=== PATIENT | female | born 1950 | race Caucasian/White ===

== ENCOUNTER 2022-07-22 18:04 | Outpatient (CLI) | payer MEDICARE, SELFPAY ==
--- NOTE | ~2022-07-22 | US_ITS ---
US thyroid INDICATION: Nontoxic thyroid nodule TECHNIQUE: Real-time sonographic images of the thyroid gland were obtained. COMPARISON: No prior studies for comparison. FINDINGS: The right thyroid lobe measures 4.4 x 1.3 x 2.1 cm. The left thyroid lobe measures 4.2 x 1 .3 x 1.6 cm. Thyroid gland is diffusely heterogeneous with bilateral thyroid nodules. Largest dominan t nodule in the right lobe measures 11 x 7 x 6 mm and is a mixed solid and cystic, hypoechoic, wider than tall, smoothly marginated with punctate echogenic foci, TR 4. Dominant mass in the left thyroid gland measures 1.7 x 1.1 x 0.7 cm is mixed cystic and solid, hypoechoic, smoothly marginated without echogenic foci, TR 3. IMPRESSION: 1. Multiple bilateral thyroid nodules compatible with multinodular goiter. Bilateral thyroid nodules do not meet sonographic criteria for biopsy. Recommend follow-up ultrasound in 12 months. Reviewed, dictated and finalized at location B. OMER EXPERIENCE SPECIALIST IMPRESSION: 1. Multiple bilateral thyroid nodules compatible with multinodular goiter. Luis ateral thyroid nodules do not meet sonographic criteria for biopsy. Recommend f ollow-up ultrasound in 12 months.
== END 2022-07-22 18:05 | disposition home or self-care (01) ==
LOC: ANHIMG 18:05
PROVIDERS: PCP Family Medicine; Visit Provider Physician Assistant Medical
DX: E04.2 Nontoxic multinodular goiter (principal)
CPT/HCPCS: 76536

== ENCOUNTER 2022-08-09 11:43 | Outpatient (CLI) | payer MEDICARE, SELFPAY ==
--- NOTE | ~2022-08-09 | DEXA_ITS ---
Bone Density Report Name: LAURA GATES Age: 72 Sex: Female Ethnicity: White Date of : 1950 Indication: postmenopausal; screening for osteoporosis; height loss; prior fracture; Referring Provider: TOÑA WOOD Study: Bone densitometry was performed. Exam Date: August 09, 2022 Accession number: [id number] Bone Density: Region BMD T-score Z-score Classification AP Spine(L1-L4) 0.803 -2.2 0.0 Osteopenia Femoral Neck (Left) 0.617 -2.1 -0.2 Osteopenia Total Hip (Left) 0.809 -1.1 0.5 Osteopenia Femoral Neck (Right) 0.566 -2.6 -0.6 Osteoporosis Total Hip (Right) 0.748 -1.6 0.0 Osteopenia Total Hip Mean 0.779 -1.4 0.3 Osteopenia World Health Organization criteria for BMD impression classify patients as: Normal (T-score at or above -1.0), Osteopenia (T-score between -1.0 and -2.5), or Osteoporosis (T-score at or below -2.5). 10-year Fracture Risk: FRAX not reported because: Some T-score for Spine Total or Hip Total or Femoral Neck at or below -2.5 Clinical Information Provided by Patient: Has had a low trauma fracture Has used the following medications: Vitamin D, Calcium Patient maximum height was 66 Menopause Age: 50 Drinks caffeinated beverages Onset of menses at age 13 Number of children 2 Impression: The patient has established osteoporosis, based on the Right Femoral Neck T-score and the existence of a prior fracture. The patient has risk factors, including: previous fracture. Discussion: HIGH RISK OF FRACTURE. BONE DENSITY IS UNDESIRABLY LOW AT ONE OR MORE SKELETAL SITES, CONSISTENT WITH POSTMENOPAUSAL OSTEOPOROSIS. This patient's lowest T-score, in a patient who has previously fractured, meets the World Health Organization's (WHO) criteria for severe osteoporosis. In untreated patients, the risk of osteoporotic fracture increases approximately two-fold for each 1.0 SD decrease in T-score. Low bone density is not the only risk factor for fracture; also consider factors such as patient's age, frailty or poor health, risk of falling, risk of injury, previous osteoporotic fracture, family history of osteoporosis, cigarette smoking, low body weight, etc. Not everyone with low bone mineral density has osteoporosis; osteomalacia and other metabolic bone disorders should also be considered. Patients who have osteoporosis should be evaluated for specific diseases and conditions (secondary causes) that may cause or contribute to bone loss. The [place] [employer]ocrinologists (AACE) and National Osteoporosis Foundation (NOF) recommend pharmacologic intervention for all postmenopausal women whose T-score is in this range. The patient should follow a healthful lifestyle (good nutrition with adequate calcium and vitamin D, and appropriate weight-bearing exercise). Fol
== END 2022-08-09 11:44 | disposition home or self-care (01) ==
PROVIDERS: PCP Family Medicine; Visit Provider Physician Assistant Medical
DX: Z78.0 Asymptomatic menopausal state (principal); M85.89 Other specified disorders of bone density and structure, multiple sites; M81.0 Age-related osteoporosis without current pathological fracture
CPT/HCPCS: 77080

== ENCOUNTER 2022-09-25 11:22 | Day surgery (SDC) | payer MEDICARE, SELFPAY ==
[2022-09-13 13:08] VITALS: BMI 23.8
--- NOTE | 2022-09-25 09:37 | WPDANESEPPF ---
Anes - Initial Pre Proc Eval Procedure: Operation Date: 09/25/22 13:30 Proposed Procedures p Screening Colonoscopy - Vishnu Mcmahan MD Date/Time: 09/25/22 09:37 Surgeon: Vishnu Mcmahan MD Pre Op Diagnosis: History of colon polyps Patient Data Age: 72 Gender: F Height: 1.65 m Weight: 65 kg Allergies Allergy/AdvReac Type Severity Reaction Status Date / Time No Known Allergies Allergy Verified 09/25/22 12:18 Home Medications Medication Instructions Recorded Confirmed Type biotin 5,000 mcg disintegrating 10,000 mcg PO DAILY 07/18/22 09/25/22 History tablet cetirizine 10 mg tablet (Allergy 10 mg PO DAILY 07/18/22 09/25/22 History Relief (cetirizine)) cholecalciferol (vitamin D3) 50 50 mcg PO DAILY 07/18/22 09/25/22 History mcg (2,000 unit) capsule magnesium oxide 500 mg capsule 500 mg PO DAILY 07/18/22 09/25/22 History nqklpngx-wpv-rfppo acid 0.4 1 tablet PO DAILY 07/18/22 09/25/22 History mg-lycopene 300 mcg-lutein 250 mcg tablet (Centrum Silver) vit 1 cap PO DAILY 07/18/22 09/25/22 History C,E,zinc,Ss-kzexq-5-lutein-zeaxanthin 250 mg-2.5 mg-0.5 mg capsule vitamin B12 500 mcg-folic acid 400 1 tablet PO DAILY 07/18/22 09/25/22 History mcg tablet atorvastatin 10 mg tablet 10 mg PO DAILY #30 tabs 07/23/22 09/25/22 Rx Patient hx anesthesia problems: none Family hx anesthesia problems: none Results Review: All pre-operative results and documents have been reviewed as part of the pre-operative evaluation. [facility] Past Medical History Medical History (Updated 09/25/22 @ 09:45 by Joe Shah MD) Age related osteoporosis Hyperlipidemia Multinodular goiter Seasonal allergies Surgical History Surgical History (Updated 07/18/22 @ 12:11 by Yenny Kay CMA) H/O wrist surgery Family History Family History (Updated 07/18/22 @ 11:50 by Yenny Kay CMA) Other Cerebrovascular accident Colon polyp Hypertension Leukemia Malignant neoplasm of prostate Social History Social History (Updated 07/18/22 @ 12:02 by Yenny Kay [facility]) Smoking status: Never smoker Second hand tobacco smoke exposure: No Alcohol intake: current Drinks per week: 2 Alcohol use details: beer/wine Substance use: never Substance use type: does not use Lack of Transportation: No Lack of Food: Never True Current Housing: I Have Housing Concerned About Future Housing: No Difficulty Paying Gas/Electric Bills: No Difficulty Paying for Meds: No Currently Unemployed: No Difficulty w/ Childcare or Family Care: No Living arrangements: with family Additional living arrangements comments: Occupation/Education: retired Gender identity (if verbalized by the patient): Female Sexual Orientation (if Verbalized by the Patient): Straight or Heterosexual Spiritual care concerns: No Agree to blood products: Yes Anes - Eval Final PreProcedure Day of Procedure 09/25/22 09:37 Patient weight: normal Heart: regular rate and rhythm Lungs: clear to auscultation and normal air movement Airway: Mallampati scale class II Neurological: alert and oriented Last oral intake: >/= 8 hours ASA classification: II Emergent: no Anesthetic plan: proceed Anesthesia type and monitoring: general GIVS Results Review: All pre-operative results and documents have been reviewed as part of the pre-operative evaluation. Informed Consent: The patient's anesthetic plan and its attendant risks and benefits were discussed with the patient/family/POA. Questions were solicited and answers provided to the satisfaction of the patient/family/POA.
[2022-09-25 12:10] VITALS: BP 171/84; PULSE 94; RESP 20; TEMP 37.1; O2SAT 100
[2022-09-25] MEDS: LACTATED RINGERS 1,000 ML 150 ML IV CONT (12:28)
--- NOTE | 2022-09-25 13:11 | PM.HPGS ---
History of Present Illness History of Present Illness Consent: Risks, benefits, and alternatives have been discussed and questions answered. Patient agrees to proceed with procedure. Chief complaint: History of colon polyps Narrative: Christina Hope is a 72 year old female with last colonoscopy 2012, had small polyp removed Review of Systems Constitutional: Constitutional: Denies headache(s) and Denies weakness Eyes: Eyes: Denies blurry vision ENT: Reports Normal hearing present, Denies headache(s) and Denies neck pain Cardiovascular: Cardiovascular: Denies chest pain and Denies dyspnea Respiratory: Respiratory: Denies dyspnea Gastrointestinal: Gastrointestinal: Reports no additional gastrointestinal complaints Genitourinary: Genitourinary: Denies dysuria Musculoskeletal: Musculoskeletal: Denies neck pain Integumentary/Breasts: Skin/Breast: Denies dry skin Neurologic: Reports Normal hearing present, Denies headache(s) and Denies weakness Psychiatric: Psychiatric: Denies anxiety Endocrine: Endocrine: Denies change in body appearance Hematologic/Lymphatic: Hematologic/Lymphatic: Denies easy bleeding Allergic/Immunologic: Allergic/Immunologic: Denies urticaria PMFSH Past Medical History Medical History (Updated 09/25/22 @ 13:11 by Vishnu Mcmahan MD) Age related osteoporosis Colon cancer screening Hyperlipidemia Multinodular goiter Seasonal allergies Surgical History Surgical History (Updated 07/18/22 @ 12:11 by Yenny Kay CMA) H/O wrist surgery Family History Family History (Updated 07/18/22 @ 11:50 by Yenny Kay CMA) Other Cerebrovascular accident Colon polyp Hypertension Leukemia Malignant neoplasm of prostate Social History Social History (Updated 07/18/22 @ 12:02 by Yenny Kya CMA) Smoking status: Never smoker Second hand tobacco smoke exposure: No Alcohol intake: current Drinks per week: 2 Alcohol use details: beer/wine Substance use: never Substance use type: does not use Lack of Transportation: No Lack of Food: Never True Current Housing: I Have Housing Concerned About Future Housing: No Difficulty Paying Gas/Electric Bills: No Difficulty Paying for Meds: No Currently Unemployed: No Difficulty w/ Childcare or Family Care: No Living arrangements: with family Additional living arrangements comments: Occupation/Education: retired Gender identity (if verbalized by the patient): Female Sexual Orientation (if Verbalized by the Patient): Straight or Heterosexual Spiritual care concerns: No Agree to blood products: Yes Meds Home Medications and Allergies Home Medications Medication Instructions Recorded Confirmed Type biotin 5,000 mcg disintegrating 10,000 mcg PO DAILY 07/18/22 09/25/22 History tablet cetirizine 10 mg tablet (Allergy 10 mg PO DAILY 07/18/22 09/25/22 History Relief (cetirizine)) cholecalciferol (vitamin D3) 50 50 mcg PO DAILY 07/18/22 09/25/22 History mcg (2,000 unit) capsule magnesium oxide 500 mg capsule 500 mg PO DAILY 07/18/22 09/25/22 History jkmoszpg-wqz-bbhrw acid 0.4 1 tablet PO DAILY 07/18/22 09/25/22 History mg-lycopene 300 mcg-lutein 250 mcg tablet (Centrum Silver) vit 1 cap PO DAILY 07/18/22 09/25/22 History C,E,zinc,Lp-lbvia-7-lutein-zeaxanthin 250 mg-2.5 mg-0.5 mg capsule vitamin B12 500 mcg-folic acid 400 1 tablet PO DAILY 07/18/22 09/25/22 History mcg tablet atorvastatin 10 mg tablet 10 mg PO DAILY #30 tabs 07/23/22 09/25/22 Rx Allergies Allergy/AdvReac Type Severity Reaction Status Date / Time No Known Allergies Allergy Verified 09/25/22 12:18 Vital Signs Vital Signs - 24 hr 09/25/22 12:10 Temperature 98.7 F Pulse Rate 94 Respiratory Rate 20 Blood Pressure 171/84 H Pulse Oximetry 100 Oxygen Delivery Room Air Exam Const: General: comfortable and no acute distress HENMT: Face/Nose/Sin
[2022-09-25 13:38] VITALS: BP 116/84; PULSE 77; RESP 20; O2SAT 98
[2022-09-25 13:48] VITALS: BP 132/73; PULSE 63; RESP 20; O2SAT 97
--- NOTE | 2022-09-25 13:52 | WPDANESPN ---
Anes - Prog Note Post-Op Date/Time: 09/25/22 13:52 Cardiovascular status: normal Respiratory status: normal Airway patency: baseline Mental status: baseline Post-Op hydration status: normal Vital Signs: Last Vital Signs Temp 37.1 C 09/25/22 12:10 Pulse 94 09/25/22 12:10 Resp 20 09/25/22 12:10 BP 171/84 H 09/25/22 12:10 Pulse Ox 100 09/25/22 12:10 O2 Del Method Room Air 09/25/22 12:10 Pain Score (VAS): 0 I/O: Intake & Output 09/24/22 09/25/22 09/25/22 23:59 07:59 15:59 Intake Total 300 Balance 300 Post-procedural complaints: none Patient Feedback: Patient satisfied with anesthetic care.
[2022-09-25 13:58] VITALS: BP 147/62; PULSE 64; RESP 20; O2SAT 100
== END 2022-09-25 14:08 | disposition home or self-care (01) ==
PROVIDERS: PCP Family Medicine; Visit Provider Internal Medicine Gastroenterology
PROC: 0DJD8ZZ Inspection of Lower Intestinal Tract, Via Natural or Artificial Opening Endoscopic (ICD-10-PCS; CPT 45378; principal; 2022-09-25 13:30)
DX: Z12.11 Encounter for screening for malignant neoplasm of colon (principal)
CPT/HCPCS: 45378

== ENCOUNTER → 2023-08-14 10:15 | Outpatient (CLI) | payer MEDICARE, SELFPAY ==
--- NOTE | ~2023-08-14 | US_ITS ---
EXAMINATION: US thyroid DATE: 08/14/2023 10:33 INDICATION: Multinodular goiter. TECHNIQUE: Multiple ultrasound images of the thyroid were obtained. COMPARISON: Ultrasound 07/22/2022 FINDINGS: The right thyroid lobe measures 4.3 x 1.7 x 1.9 cm. The left thyroid lobe measures 4.0 x 1.3 x 1.6 c m. In the left thyroid lobe, there is a 1.4 cm predominantly solid, hypoechoic, wider than tall nodu le with ill-defined margin without echogenic foci (TI-RADS TR4). In the left thyroid lobe, there is a 5 mm solid, hypoechoic, wider than tall nodule with ill-defined margin without echogenic foci (TR4). In the right thyroid lobe, there is an 8 mm solid, hypoechoic, wider than tall nodule with smooth ma rgin without echogenic foci (TR4). In the right thyroid lobe, there is a 10 mm solid, hypoechoic, wid er than tall nodule with smooth margin without punctate echogenic foci (TR4). IMPRESSION: 1. Stable multinodular goiter. Thyroid ultrasound is recommended in one year. Reviewed, dictated and finalized at location A. SWAMPER
== END ==
PROVIDERS: PCP Internal Medicine; Visit Provider Internal Medicine
DX: E04.2 Nontoxic multinodular goiter (principal)
CPT/HCPCS: 76536

== ENCOUNTER 2023-09-26 12:36 | Outpatient (CLI) | payer MEDICARE, SELFPAY ==
--- NOTE | ~2023-09-26 | US_ITS ---
EXAMINATION: US FNA w image guidance, US FNA additional DATE: 09/26/2023 13:52 INDICATION: Bilateral thyroid nodules TECHNIQUE: A time-out was performed to verify the patient's name, date of , and procedure to be performed . The procedure and its benefits and risks were discussed with the patient. Risks specifically discus sed included bleeding and infection. The patient understood the risks and agreed to proceed. The neck was prepped and draped in the usual sterile manner. 3 mL 1% lidocaine was used for local anesthesia at the sites of biopsy overlying both the left and right thyroid lobes. 6 passes were made with a 25 G needle into each of the left and right thyroid nodules. Appropriate needle location was documented with continuous sonographic guidance. Sterile bandages were applied. There were no immediate compli cations. FINDINGS: Grayscale ultrasound images demonstrate biopsy needles advanced into 1.7 cm predominantly solid nodul es at the inferior left thyroid. Subsequent images demonstrate biopsy needles advanced into the small er 1.5 cm predominant solid hypoechoic nodule at the superior right thyroid lobe. Both nodules demons trate internal echogenic foci with posterior comet tailing consistent with inspissated colloid. IMPRESSION: 1. Successful ultrasound-guided fine needle aspiration of a 1.5 cm nodule at the superior right thyr oid. 2. Successful ultrasound guided fine needle aspiration of a 1.7 cm nodule in the inferior left thyroi d. Reviewed, dictated and finalized at location A. RNATIONAL TRAVEL CONSULTANT IMPRESSION: 1. Successful ultrasound-guided fine needle aspiration of a 1.5 cm nodule at t he superior right thyroid. 2. Successful ultrasound guided fine needle aspiration of a 1.7 cm nodule in th e inferior left thyroid.
== END 2023-09-26 12:37 | disposition home or self-care (01) ==
PROVIDERS: PCP Internal Medicine; Visit Provider Internal Medicine
DX: E04.2 Nontoxic multinodular goiter (principal); K52.89 Other specified noninfective gastroenteritis and colitis
CPT/HCPCS: 10005; 10006; 88172; 88173; 88305

== ENCOUNTER 2024-08-24 11:52 | Outpatient (CLI) | payer MEDICARE, SELFPAY ==
--- NOTE | ~2024-08-24 | US_ITS ---
EXAMINATION: US thyroid DATE: 08/24/2024 12:18 INDICATION: Thyroid nodules. TECHNIQUE: Multiple ultrasound images of the thyroid were obtained. COMPARISON: Thyroid ultrasound 08/14/2023, 07/22/2022 FINDINGS: The right thyroid lobe measures 4.5 x 1.8 x 1.9 cm. The left thyroid lobe measures 4.3 x 1.6 x 1.0 c m. In the thyroid isthmus, there is a 9 mm solid, hypoechoic, wider than tall nodule with smooth mar gin without echogenic foci (TI-RADS TR4). In the right thyroid lobe, there is a 10 mm mixed cystic an d solid, hypoechoic, wider than tall nodule with smooth margin and punctate echogenic foci (TR4), sta ble from 09/26/23 when biopsy was benign. In the right thyroid lobe, there is a 6 mm mixed cystic and solid, hypoechoic, wider than tall nodule with smooth margin and punctate echogenic foci (TR4). In th e right thyroid lobe, there is a 10 mm solid, hypoechoic, wider than tall nodule with lobular margin and punctate echogenic foci (TR5). In the left thyroid lobe, there is a 4 mm nodule. In the left thyr oid lobe, there is a 10 mm solid, hypoechoic, wider than tall nodule with smooth margin and macrocalc ification (TR4), decreased in size from 09/26/23 when biopsy was benign. IMPRESSION: 1. Multinodular goiter status post two recent benign biopsies. Reviewed, dictated and finalized at location A. . CREATIVE DIRECTOR
== END 2024-08-24 11:53 | disposition home or self-care (01) ==
LOC: MICIMG 11:52
PROVIDERS: PCP Family Medicine; Visit Provider Internal Medicine
DX: M81.0 Age-related osteoporosis without current pathological fracture (principal); E04.2 Nontoxic multinodular goiter
CPT/HCPCS: 76536

== ENCOUNTER 2024-09-21 09:48 | Outpatient (CLI) | payer MEDICARE, SELFPAY ==
--- NOTE | ~2024-09-21 | DEXA_ITS ---
Bone Density Report Name: LAURA GATES Age: 74 Sex: Female Ethnicity: White Date of : 1950 Indication: osteopenia; monitoring treatment; height loss; Referring Provider: DIPTI VILLALPANDO Study: Bone densitometry was performed. Exam Date: September 21, 2024 Accession number: [id number] Bone Density: Region BMD T-score Z-score Classification AP Spine(L1-L4) 0.826 -2.0 0.3 Osteopenia Femoral Neck (Left) 0.641 -1.9 0.2 Osteopenia Total Hip (Left) 0.863 -0.7 1.1 Normal Femoral Neck (Right) 0.579 -2.4 -0.4 Osteopenia Total Hip (Right) 0.792 -1.2 0.5 Osteopenia Total Hip Mean 0.827 -1.0 0.8 Normal World Health Organization criteria for BMD impression classify patients as: Normal (T-score at or above -1.0), Osteopenia (T-score between -1.0 and -2.5), or Osteoporosis (T-score at or below -2.5). 10-year Fracture Risk: FRAX not reported because: Treated for osteoporosis Previous Exams: Region Exam Age BMD T-score BMD Change BMD Change Date g/cm2 vs Baseline vs Previous AP Spine (L1-L4) 09/21/2024 74 0.826 -2.0 0.022 (2.8%)# 0.022 (2.8%)# 08/09/2022 72 0.803 -2.2 Total Hip(Left) 09/21/2024 74 0.863 -0.7 0.053 (6.6%)# 0.053 (6.6%)# 08/09/2022 72 0.809 -1.1 Total Hip(Right) 09/21/2024 74 0.792 -1.2 0.044 (5.9%)# 0.044 (5.9%)# 08/09/2022 72 0.748 -1.6 *Denotes significance at 95% confidence level, LSC for AP Spine = 0.022 g/cm2, LSC for Total Hip = 0.027 g/cm2 # Denotes dissimilar scan types or analysis methods Clinical Information Provided by Patient: Is being treated for osteoporosis Has used the following medications: Vitamin D, Calcium Patient maximum height was 66 Menopause Age: 50 Drinks caffeinated beverages Onset of menses at age 13 Number of children 2 Impression: The patient has low bone mass, based on the Right Femoral Neck T-score. No significant bone loss was observed. Discussion: PATIENT UNDER TREATMENT WITH NO SIGNIFICANT BMD LOSS SINCE LAST EXAM. In an untreated patient, BMD typically declines with age. A lack of decline or gain is usually a sign that treatment is efficacious and fracture risk is reduced. It is important to ask patients whether they are taking their medications and to encourage continued and appropriate compliance with their osteoporosis therapies to reduce fracture risk. It is also important to review their risk factors and encourage appropriate calcium and vitamin D intakes, exercise, fall prevention and other lifestyle measures. Follow-Up: Consider a repeat BMD and Vertebral Fracture Assessment (VFA) exam in 2 years or sooner if medically necessary, to reassess this patient's status. Reported by: JOSÉ LUIS on 09/21/2024 10:27:00 AM. Reviewed, dictated and finalized at location AEricka [facility]
--- OUTSIDE RECORDS SUMMARY | 2024-09-23 17:02 | XMS_ITS | Clinical Summary ---
Author Organization [facility] Address [address] [place] [address]. [place], [place] [id number] [place] [address] Care Team Providers Care Scada Technician Name Role Phone Unavailable Primary Care Provider Unavailabl e Social History Tobacco Use Types Packs/Day Years Used Date Smoking Tobacco: Never Assessed Comments Unknown Sex and Gender Information Value Date Recorded Sex Assigned at Not on file Legal Sex Female 4:22 PM CDT Gender Identity Not on file Sexual Orientation Not on file Last Filed Vital Signs Vital Sign Reading Time Taken Comments Blood Pressure 140/80 10/10/2012 11:52 AM CONTROL CHEMIST Pulse 88 10/10/2012 11:52 AM CONTROL CHEMIST Temperature - - Respiratory Rate - - Oxygen Saturation - - Inhaled Oxygen Concentration - - Weight 66.7 kg (147 lb) 10/10/2012 11:52 AM CONTROL CHEMIST Height - - Body Mass Index - - Plan of Treatment Health Maintenance Due Date Last Done Comments Colorectal Cancer Screening Colonoscopy (10 Years) 1950 Hepatitis C 1968 DTaP, Tdap and Td Vaccines ( 1 - Tdap) 1969 Mammogram Screening 1990 Zoster Vaccines (1 of 2) 2000 Dexa Scan (General) 2015 Pneumococcal Vaccine: 65+ Ye ars (1 of 1 - PCV) 2015 COVID-19 Vaccine ( - 2023-2 5 season) 2024 Influenza Adult (#1) 2024 RSV Immunization or 60+ Years (1 - 1-dose 75+ series) 2025 Meningococcal Vaccine Aged Out No benjamin donovan eligible based on patient's age to complete this topic RSV Immunizations Under 20 Months Aged Out No longer eligible based on patient's age to complete this topic
--- OUTSIDE RECORDS SUMMARY | 2024-09-23 17:02 | XMS_ITS | Clinical Summary ---
Author Organization [facility] Address [address] [place] [address] Care Team Providers Care Exec. Creative Director Name Role Phone Ashley Wise MD Primary Care Provider [phone] Allergies No known active allergies Medications vits A,C,E/lutein/zeax/ zn/abdulaziz (EYE HEALTH FORMULA ORAL) Active multivitamin with minerals (HAIR,SKIN AND NAILS ORAL) Active multivitamin tabletIndications: Vitamin Deficiency Prevention Active cholecalciferol (VITAMIN D-3) 10,000 unit tablet A ctive magnesium oxide (MAG-OX) 500 mg (301.6 mg elemental) tablet Ac tive Active Problems Problem Noted Date Diagnosed Date Knee pain 11/11/2016 Skin neoplasm 06/05/2015 Actinic keratosis 06/05/2015 Keratosis, senilis 06/05/2015 Surgical History Surgery Date Site/Laterality Comments WRIST SURGERY Left Family History Medical History Relation Name Comments Hypertension Brother Family history of hypertension - (Added by TW Conv) Heart disease Father Stroke Mother Family history of cerebrovascular accident (CVA) - (Added by TW Conv) Ovarian cancer Other 1 Carcinoma Of The Ovary - (Added by TW Conv) Stroke Other 2 Stroke Syndrome - (Added by TW Conv) Relation Name Status Comments Brother Father Mother Other 1 Other 2 Social History Tobacco Use Types Packs/Day Years Used Date Smoking Tobacco: Never Smokeless Tobacco: Never Alcohol Use Standard Drinks/Week Comments Yes 0 (1 standard drink = 0.6 oz pur e alcohol) socially Comments No Sex and Gender Information Value Date Recorded Sex Assigned at Not on file 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 Gender Identity Not on file Sexual Orientation Not on file Obstetrics History Para Term AB IAB SAB Ectopic Multiple Livin g Live Births 2 2 2 2 2 Date Outcome GA Total Labor Labor/2nd/3rd Weight Sex Type Anes PTL Paige A1 A5 Name Clin 1972 Term M Vag-S pont Living Complications:None 1976 Term F Vag-S pont Living Complications:None Last Filed Vital Signs Vital Sign Reading Time Taken Comments Blood Pressure 156/78 05/14/2018 10:18 AM CDT Pulse 97 07/06/2013 11:00 AM COMPENSATION SUPERVISOR Temperature - - Respiratory Rate - - Oxygen Saturation - - Inhaled Oxygen Concentration - - Weight 68.7 kg (151 lb 6.4 oz) 05/14/2018 10:18 AM CDT Height 163.8 cm (5' 4.5 ) 05/14/2018 10:18 AM CD T Body Mass Index 25.59 05/14/2018 10:18 AM CDT Plan of Treatment Health Maintenance Due Date Last Done Comments Depression Screening 1950 Fall Risk Assessment 1950 Hepatitis C Screening 1950 Osteoporosis Screening-Bone Density Scan 1950 Hepatitis B Screening 1968 Zoster Vaccine (1 of 2) 2000 Pneumococcal vaccine 65+ (1 of 1 - PCV) 2015 Well Visit 65+ 05/14/2019 05/14/2018 Colon Cancer Screening-Colonoscopy 07/12/2023 07/12/2013 Influenza Vaccine (#1) 2024 06/19/2017 Breast Cancer Screening-Mammogram 05/17/2025 05/17/2024, 05/14/2023, 05/13/2022, Additional history exists DTaP/Tdap/Td Vaccine (2 - Td or Tdap) 05/07/2026 05/07/2016 Colon Cancer Screening-CT Colonography Discontinued 07/12/2013 Colon Cancer Screening-DNA Stool Discontinued 07/12/20 13 Colon Cancer Screening-FIT Discontinued 07/12/2013 Colon Cancer Screening-Sigmoidoscopy Discontinued 07/12/2013 Procedures Procedure Name Priority Date/Time Associated Diagnosis Comments SCREENING MAMMOGRAM BILATERAL W TYLER Schedule Routine, Read Routine (OP Routine) 05/17/2024 12:53 PM CDT Screening mammogram, encounter for COLONOSCOPY REPORT 07/12/2013 from Last 3 Months or Most Recently Relevant to Health Maintenance Results * Screening Mammogram Bilateral W Tyler (05/17/2024 12:53 PM CDT) Anatomical Region Laterality Modality Breast Bilateral Mammography Narrative 05/18/2024 4:28 PM CDT Mammogram Technique: Bilateral Digital Breast Tomosynthesis, Bilateral C-view 2D Screening mammogram. ??Views obtained: ??bilateral craniocaudal and bilateral mediolateral oblique. ??Computer Aided Detection was performed. Mammogram Findings: The present examination has been compared to prior imaging studies performed at [facility] on 05/13/2022 and 05/14/2023, and at [facility] on 03/30/2021. There are scattered areas of fibroglandular density. There is no suspicious abnormality in either breast. Impression: There is no mammographic evidence of malignancy. Annual screening mammography is recommended. OVERALL FINAL ASSESSMENT: BI-RADS CATEGORY 1: ??Negative. Procedure Note Dedrick Luke MD - 05/18/2024 Mammogram Technique: Bilateral Digital Breast Tomosynthesis, Bilateral C-view 2D Screening mammogram. Views obtained: bilateral craniocaudal and bilateral mediolateral oblique. Computer Aided Detection was performed. Mammogram Findings: The present examination has been compared to prior imaging studies performed at [facility] on 05/13/2022 and 05/14/2023, and at [facility] on 03/30/2021. There are scattered areas of fibroglandular density. There is no suspicious abnormality in either breast. Impression: There is no mammographic evidence of malignancy. Annual screening mammography is recommended. OVERALL FINAL ASSESSMENT: BI-RADS CATEGORY 1: Negative. Self Screening Mammogram IMG MAMMO PROCEDURES Fi nal Result * COLONOSCOPY REPORT (07/12/2013) Anatomical Region Laterality Modality Other Narrative 07/12/2013 Ordered by an unspecified provider. us Historical Provider MD RYAN PROCEDURE ORDERABLES F inal Result from Last 3 Months or Most Recently Relevant to Health Maintenance Insurance MEDICARE SOLUTIONS MEDICARE [facility] REF [facility] Address: [facility] [address] [place] [address] Care Teams Exec. Creative Director Relationship Specialty Start Date End Date Ashley Wise MD PCP - General Family Medicine 03/24/23
--- OUTSIDE RECORDS SUMMARY | 2024-09-23 17:02 | XMS_ITS | Referral Summary ---
Author Organization [facility] al Address [address] [place] [address] Care Team Providers Care Network Technology Instructor Name Role Phone Ashley Wise MD Primary Care Provider Allergies No known active allergies Medications vits [...] 06/05/2015 Actinic keratosis 06/05/2015 Keratosis, senilis 06/05/2015 Social History Tobacco Use Types Packs/Day Years Used Date Smoking Tobacco: Never Smokeless Tobacco: Never Alcohol Use Standard Drinks/Week Comments Yes 0 (1 standard drink = 0.6 oz pur e alcohol) socially Comments No Sex and Gender Information Value Date Recorded Sex Assigned at Not on file 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 Gender Identity Not on file Sexual Orientation Not on file Last Filed Vital Signs Vital Sign Reading Time Taken Comments Blood Pressure 156/78 05/14/2018 10:18 AM CDT Pulse 97 07/06/2013 11:00 AM FLOOR COVERING PRINTER Temperature - - Respiratory Rate - - Oxygen Saturation - - Inhaled Oxygen Concentration - - Weight 68.7 kg (151 lb 6.4 oz) 05/14/2018 10:18 AM CDT Height 163.8 cm (5' 4.5 ) 05/14/2018 10:18 AM CD T Body Mass Index 25.59 05/14/2018 10:18 AM CDT Plan of Treatment Not on file Procedures Procedure Name Priority Date/Time Associated Diagnosis [...] compared to prior imaging studies performed at [facility] on 05/13/2022 and 05/14/2023, and at [facility] on 03/30/2021. There are scattered areas of [...] compared to prior imaging studies performed at [facility] on 05/13/2022 and 05/14/2023, and at [facility] on 03/30/2021. There are scattered areas of fibroglandular density. There is no suspicious abnormality in either breast. Impression: There is no mammographic evidence of malignancy. Annual screening mammography is recommended. OVERALL FINAL ASSESSMENT: BI-RADS CATEGORY 1: Negative. us Self Screening Mammogram IMG MAMMO PROCEDURES Fi nal Result * COLONOSCOPY REPORT (07/12/2013) Anatomical Region Laterality Modality Other Narrative 07/12/2013 Ordered by an unspecified provider. Historical Provider MD RYAN PROCEDURE ORDERABLES F inal Result from Last 3 Months or Most Recently Relevant to Health Maintenance Insurance MEDICARE SOLUTIONS MEDICARE [facility] [place] [address] [facility] HMO REF MEDICARE SOLUTIONS Member Subscriber Plan / Payer (Ef fective 2022-Present) Name:Christina Hope Relation to Subscriber:Self Name:Christina Hope Payer ID:[id number] (NAIC) Type:[facility] MEDICARE Address: [address] [id number] [place] [phone] Care Teams Network Technology Instructor Relationship Specialty Start Date End Date Ashley Wise MD PCP - General Family Medicine 03/24/23
== END 2024-09-21 09:49 | disposition home or self-care (01) ==
PROVIDERS: PCP Family Medicine; Visit Provider Internal Medicine
DX: M85.89 Other specified disorders of bone density and structure, multiple sites (principal); E78.5 Hyperlipidemia, unspecified; E04.2 Nontoxic multinodular goiter; M81.0 Age-related osteoporosis without current pathological fracture
CPT/HCPCS: 77080

== ENCOUNTER 2025-08-16 10:28 | Outpatient (CLI) | payer MEDICARE, SELFPAY ==
--- NOTE | ~2025-08-16 | US_ITS ---
EXAMINATION: US thyroid DATE: 08/16/2025 11:07 INDICATION: Multinodular goiter TECHNIQUE: Multiple ultrasound images of the thyroid were obtained. COMPARISON: August 24, 2024 FINDINGS: The right thyroid lobe measures 4.6 x 1.6 x 1.2 cm. The left thyroid lobe measures 4.7 x 1.2 x 1.7 cm. Several subcentimeter size TR 4 lesions identified in both lobes, and not grossly changed from the previous exam. Echotexture otherwise is mildly heterogeneous but normal in appearance. Vascular flow appears slightly increased. IMPRESSION: 1. Several small TR 4 nodules, not significantly changed since the previous exam. Recommend correlation with follow-up surveillance thyroid scan in 12 months with recommended date of the next exam on or about August 152025. 2. Mildly hyperemic appearance of the thyroid parenchyma. Query if patient has presentation suggestive of thyroiditis. Reviewed, dictated and finalized at location A. ODUCTIVE SURGEON IMPRESSION: 1. Several small TR 4 nodules, not significantly changed since the previous exa m. Recommend correlation with follow-up surveillance thyroid scan in 12 months with recommended date of the next exam on or about August 152025. 2. Mildly hyperemic appearance of the thyroid parenchyma. Query if patient has presentation suggestive of thyroiditis.
== END 2025-08-16 10:29 | disposition home or self-care (01) ==
LOC: MICIMG 10:29
PROVIDERS: PCP Student in an Organized Health Care Education/Training Program; Visit Provider Internal Medicine
DX: E04.2 Nontoxic multinodular goiter (principal); E07.9 Disorder of thyroid, unspecified; M81.0 Age-related osteoporosis without current pathological fracture
CPT/HCPCS: 76536